=== PATIENT | male | born 1955 | race Caucasian/White ===

== ENCOUNTER → 2017-07-21 | Outpatient (CLI) | payer OTHER | END | disposition home or self-care (01) | LOC: PCVCIMAG 14:01 | DX: I65.23 Occlusion and stenosis of bilateral carotid arteries (principal); I25.10 Atherosclerotic heart disease of native coronary artery without angina pectoris; I10 Essential (primary) hypertension; E78.5 Hyperlipidemia, unspecified; R06.00 Dyspnea, unspecified; I25.5 Ischemic cardiomyopathy; Z95.5 Presence of coronary angioplasty implant and graft | CPT/HCPCS: 93325; 93351; 93880 ==

== ENCOUNTER → 2018-10-28 | Outpatient (CLI) | payer OTHER ==
--- NOTE | 2018-10-28 14:43 | PCVCIMAG ---
APPROVED REPORT Indications Bruit Stenosis Risk Factors Hypertension: Hyperlipidemia Doppler Spectral Velocity Analysis PSV / EDVPSV / EDV ECA (R) 124 / 31 cm/sECA (L) 69 / 8 cm/s dICA (R) 63 / 18 cm/sdICA (L) 55 / 18 cm/s Yusuf (R) 101 / 20 cm/smICA (L) 79 / 26 cm/s pICA (R) 133 / 30 cm/spICA (L) 77 / 17 cm/s Bulb (R) 85 / 19 cm/sBulb (L) 72 / 19 cm/s dCCA (R) 79 / 18 cm/sdCCA (L) 89 / 17 cm/s mCCA (R) 91 / 19 cm/smCCA (L) 82 / 23 cm/s Vert (R) 29 / 6 cm/sVert (L) 37 / 11 cm/s ICA/CCA 0.89 ICA/CCA 1.46 Basic Measurements Blood Pressure: Pulses: Right Left RightLeft Brachial(Sitting) 120/[id number]/68mmHgTemporal Real Time B-Mode Imaging Vert. (R)AntegradeVert. (L)Antegrade Findings RIGHT CAROTID: The carotid bulb has moderate plaque. The proximal internal carotid artery shows 40-50% stenosis. The common carotid artery shows no significant stenosis. The external carotid artery shows no significant stenosis. LEFT CAROTID: The carotid bulb has moderate plaque. The proximal internal carotid artery shows <40% stenosis. The common carotid artery shows no significant stenosis. The external carotid artery shows no significant stenosis. Conclusion 40-50% stenosis of the right internal carotid artery with moderate plaque. <40% stenosis of the left internal carotid artery with moderate plaque.
== END | disposition home or self-care (01) ==
LOC: PCVCIMAG 13:40
PROVIDERS: ATTEND Internal Medicine Cardiovascular Disease
DX: I65.23 Occlusion and stenosis of bilateral carotid arteries (principal)
CPT/HCPCS: 93880

== ENCOUNTER → 2018-12-14 | Outpatient (CLI) | payer OTHER ==
--- NOTE | 2018-12-14 14:03 | PCVCIMAG ---
APPROVED REPORT Study performed: 12/14/2018 12:32:43 Exam: Stress Echocardiogram Indication: CAD s/p PCI, htn, hlp, dyspnea Patient Location: Echo lab Stress Nurse: Analia Gary RN Status: routine Ht: 5 ft 4 in HR: 66 bpm BP: 140/90 mmHg Rhythm: NSR Procedure The patient underwent an Exercise Stress Test using the Robby Protocol. Blood pressure, heart rate, and EKG were monitored. An Echocardiogram was performed by office machine technician in four stages in quad fashion. At peak stress, four selected images were obtained and placed side by side with resting images for comparison. Stress Test Details Stress Test: Exercise stress testing was performed using a Robby protocol. HR Resting HR: 66 bpmMax Heart Rate (APMHR): 159 bpm Max HR Achieved: 153 bpmTarget HR (85% APMHR): 135 bpm % of APMHR: 96 Recovery HR: 105 bpm HR response to stress: Normal HR response to stress BP Resting BP: 140/90 mmHg Max BP: 170/80 mmHg Recovery BP: 138/80 mmHg BP response to stress: Normal blood pressure response to stress. ECG Resting ECG: Sinus Rhythm Stress ECG: Sinus Rhythm ST Change: Normal Arrhythmia: None Recovery ECG: Sinus Rhythm Recovery ST Change: Normal Recovery Arrhythmia: None Clinical Reason for Termination: Maximal effort Stress Symptoms: Dyspnea Exercise duration: 9 min 18 sec Highest Stage Achieved: Stage 4: 4.2 mph at 16% grade. Exercise capacity: 11 METs Overall Exercise Capacity for Age: Normal Scale: Active Angina Score: None Pre-Stress Echo The resting Echocardiogram showed normal left ventricular contractility with an estimated Ejection Fraction of about >55%. The resting echocardiogram demonstrated normal wall motion in all wall segments. Post-Stress Echo The stress Echocardiogram showed normal left ventricular contractility with an estimated Ejection Fraction of about 65%. Compared to rest, there were no stress-induced wall motion abnormalities. Clinical No clinical or ECG evidence for ischemia. Conclusion Clinical Response: Non-ischemic Exercise Capacity: Average Stress ECG Response: Non-ischemic Stress Echo Images: Non-ischemic The left ventricle is normal in size and wall thickness in both the rest and stress images. Normal color doppler. No regurgitation or stenosis present on pulmonic,tricuspid or aortic valves. Trace mitral regurgitation. Other Information Study Quality: Adequate <Conclusion> The left ventricle is normal in size and wall thickness in both the rest and stress images. Normal color doppler. No regurgitation or stenosis present on pulmonic,tricuspid or aortic valves. Trace mitral regurgitation.
== END | disposition home or self-care (01) ==
LOC: PCVCIMAG 12:39
PROVIDERS: ATTEND Internal Medicine Cardiovascular Disease
DX: I25.10 Atherosclerotic heart disease of native coronary artery without angina pectoris (principal); I10 Essential (primary) hypertension
CPT/HCPCS: 93325; 93351